=== PATIENT | female | born 1980 | race Caucasian/White ===

== ENCOUNTER 2020-06-12 18:10 | Emergency (ER) | payer OTHER, SELFPAY ==
[2020-06-12 18:22] VITALS: BP 104/55; PULSE 71; RESP 18; TEMP 37.5; O2SAT 100; BMI 24.7
[2020-06-13 00:08] LABS: MANUAL DIFF FLAG NO
[2020-06-13 00:10] LABS: Basophils Absolute Auto 0.1 X10*3/uL (0.0-0.2); Basophils Percent Auto 0.7 % (0-2); Eosinophils Absolute Auto 0.1 X10*3/uL (0.0-0.4); Eosinophils Percent Auto 1.4 % (0-4); Hematocrit 36.9 % (37-47); Hemoglobin 12.2 g/dl (12.0-16.0); Imm Gran Abs Auto 0.02 X10*3/uL (0.00-0.03); Imm Gran Pct Auto 0.2 % (0.0-0.4); Lymphocytes Absolute Auto 3.3 X10*3/uL (1.2-4.9); Lymphocytes Percent Auto 37.9 % (20-40); Mean Corpuscular HGB Conc 33.1 g/dl (31.0-35.0); Mean Corpuscular Hemoglobin 29.7 pg (27.0-33.0); Mean Corpuscular Volume 89.8 fL (80-98); Mean Platelet Volume 9.1 fL (9.4-12.3); Monocytes Absolute Auto 0.6 X10*3/uL (0.1-1.2); Monocytes Percent Auto 7.4 % (2-11); Neutrophils Absolute Auto 4.5 X10*3/uL (2.0-8.3); Neutrophils Percent Auto 52.4 % (45-73); Platelet Count 348 X10*3/uL (160-400); Red Blood Count 4.11 X10*6/uL (4.20-5.50); Red Cell Distribution Width 12.1 % (11.0-16.0); White Blood Count 8.6 X10*3/uL (4.8-10.8)
[2020-06-13 00:19] LABS: Glucose Urine UA NEG (NEG); Leukocyte Esterase Urine NEG (NEG); Nitrite Urine NEG (NEG); Specific Gravity - Urine >= 1.030 (1.005-1.025); Urine Blood NEG (NEG); Urine Ketones 40 MG/DL (NEG); Urine Protein NEG (NEG-TRACE)
[2020-06-13 00:20] LABS: Appearance Urine HAZY; Color Urine YELLOW
[2020-06-13 00:41] LABS: Alanine Aminotransferase 13 U/L (0-31); Albumin Level 4.1 g/dL (3.5-5.0); Alkaline Phosphatase 57 U/L (39-117); Anion Gap 11 (12-20); Aspartate Amino Transferase 16 U/L (5-31); Bilirubin Direct 0.3 mg/dL (0.0-0.5); Bilirubin Total 0.6 mg/dL (0.0-1.0); Blood Urea Nitrogen 12 mg/dL (9-16); Calcium 8.9 mg/dL (8.4-10.2); Carbon Dioxide 25 mmol/L (22-29); Chloride 107 mmol/L (96-108); Creatinine Clr Calc Pharmacy 103.9; Estimated Glomerular Filt Rate > 60; Glucose Random 90 mg/dL (60-115); Lipase 10 U/L (8-78); Potassium 3.7 mmol/l (3.3-5.1); Sodium 139 mmol/L (135-145); Total Protein 6.2 g/dL (6.5-8.0)
[2020-06-13 01:08] VITALS: BP 100/52; PULSE 61; RESP 16; TEMP 37.1
--- NOTE | 2020-06-13 02:25 | ED_ITS ---
HPI - GI Bleed General Chief complaint: GI Bleed Stated complaint: rectal bleeding Time Seen by Provider: 06/13/20 01:01 Source: patient Mode of arrival: ambulatory Limitations: no limitations History of Present Illness HPI Narrative: This is a 39-year-old female with out significant past medical history who presents with isolated development a few episodes of diarrhea yesterday morning that started at 4:00 a.m. with a few episodes afterwards that then she noted became mixed with blood and she states she has had a decrease in appetite without recent travel, nausea, vomiting, Abdominal pain,fevers, chills. She has not had any recent antibiotic use and does not take any prescription medications. She denies any food allergies. The event that had her most concerned was that she had had 2 small episodes of strictly small amounts blood that she states was bright red but denies any history of hemorrhoids. patient states that her last bleeding episode was at 11:00 a.m. and there has been no further bleeding or diarrhea. Related Data Allergies Allergy/AdvReac Type Severity Reaction Status Date / Time Penicillins [PENICILLINS] Allergy Intermediate HIVES Unverified 05/25/20 14:59 Sulfa (Sulfonamide Allergy Intermediate HIVES Unverified 05/25/20 14:59 Antibiotics) [SULFA (SULFONAMIDE ANTIBIOTICS)] Review of Systems Review of Systems: Pertinent positives and negatives as stated in HPI and 10 point review of systems is otherwise negative. PMFSH Past Medical History Source: nursing notes reviewed Medical History No known health problems No known health problems Social History Social History Advance Directives: No Advance Directives Information Provided: No Physical Exam Vital Signs and I&O and Narrative: Vital Signs and I&O: Vital Signs Temp 98.8 F 06/13/20 01:08 Pulse 61 06/13/20 01:08 Resp 16 06/13/20 01:08 BP 100/52 L 06/13/20 01:08 Pulse Ox 100 06/12/20 18:22 Intake & Output 06/12/20 06/12/20 06/13/20 06:59 18:59 06:59 Weight 61.235 kg Body Mass Index 24.7 VITAL SIGNS: Reviewed. GENERAL: Well developed, well nourished, in no acute distress. HEAD: Normocephalic/atraumatic, Posterior oropharynx was without edema, erythema or exudate. EYES: PERRLA, Pupils <>, EOMI intact without pain, no nystagmus/pallor/icterus noted EARS: Ext canals without abnormality, TMs non-bulging and non-erythematous NOSE: Nares patent bilateral OROPHARYNX: no oral lesions noted, posterior pharynx clear and non-erythematous without noted tonsillar enlargement/erythema/exudates NECK: Supple, no adenopathy LUNGS: Normal breath sounds. No adventitious sounds or accessory muscle use. SpO2<> CARDIOVASCULAR: Regular rate and rhythm without noted murmurs, no JVD or lower extremity edema. ABDOMEN: Soft, non-tender, non-distended with bowel sounds. No rigidity. No guarding. No palpable masses or hernias noted ARMEN: There are no inflamed hemorrhoids noted, but there is significant irritation to the 12:00 p.m. area of the anus without active bleeding , there we re no internal hemorrhoids noted and no stool in the rectal vault. MUSCULOSKELETAL: No tenderness, deformities, or effusions noted on gross inspection. EXTREMITIES: No cyanosis, clubbing or edema. SKIN: Inspection of the skin reveals no rashes, ulcerations, jaundice, pallor, or petechiae. NEUROLOGIC: Alert and oriented x 3. Strength and sensation to light touch were grossly intact x 4. Course Course Course Narrative: This is a 39-year-old female with history and clinical presentation most consistent with likely viral gastroenteritis versus contaminated food. On review of laboratory workup there is no evidence for infection, anemia , electrolyte abnormalities or MANA. all results and findings were discussed with the patient at bedside and she is stable for discharge to home and understands that her primary care provider will probably order follow- up lab work. MDM - GI Bleed Lab Data Result diagrams: 06/13/20 00:02 06/13/20 00:02 Labs: Lab Results 06/13/20 06/13/20 06/13/20 Range/Units 00:02 00:02 00:13 WBC 8.6 (4.8-10.8) X10*3/uL RBC 4.11 L (4.20-5.50) X10*6/uL Hgb 12.2 (12.0-16.0) g/dl Hct 36.9 L (37-47) % MCV 89.8 (80-98) fL MCH 29.7 (27.0-33.0) pg MCHC 33.1 (31.0-35.0) g/dl RDW 12.1 (11.0-16.0) % Plt Count 348 (160-400) X10*3/uL MPV 9.1 L (9.4-12.3) fL Immature Gran % (Auto) 0.2 (0.0-0.4) % Neut % (Auto) 52.4 (45-73) % Lymph % (Auto) 37.9 (20-40) % [place] % (Auto) 7.4 (2-11) % Eos % (Auto) 1.4 (0-4) % Baso % (Auto) 0.7 (0-2) % Neut # (Auto) 4.5 (2.0-8.3) X10*3/uL Lymph # (Auto) 3.3 (1.2-4.9) X10*3/uL [place] # (Auto) 0.6 (0.1-1.2) X10*3/uL Eos # (Auto) 0.1 (0.0-0.4) X10*3/uL Baso # (Auto) 0.1 (0.0-0.2) X10*3/uL Abs Immat Gran (auto) 0.02 (0.00-0.03) X10*3/uL Absolute Nucleated RBC 0.000 (0.0-0.012) X10*3/uL Nucleated RBC % (auto) 0.0 (0.0-0.2) /100WBC Sodium 139 (135-145) mmol/L Potassium 3.7 (3.3-5.1) mmol/l Chloride 107 (96-108) mmol/L Carbon Dioxide 25 (22-29) mmol/L Anion Gap 11 L (12-20) BUN 12 (9-16) mg/dL Creatinine 0.62 (0.5-1.4) mg/dL Estim Creat Clear Calc 103.9 Estimated GFR > 60 Random Glucose 90 (60-115) mg/dL Calcium 8.9 (8.4-10.2) mg/dL Total Bilirubin 0.6 (0.0-1.0) mg/dL Direct Bilirubin 0.3 (0.0-0.5) mg/dL AST 16 (5-31) U/L ALT 13 (0-31) U/L Alkaline Phosphatase 57 (39-117) U/L Total Protein 6.2 L (6.5-8.0) g/dL Albumin 4.1 (3.5-5.0) g/dL Lipase 10 (8-78) U/L Urine Color YELLOW Urine Appearance HAZY Urine pH 6.0 (5.0-8.0) Ur Specific [place] >= 1.030 H (1.005-1.025) Urine Protein NEG (NEG-TRACE) MG/DL Urine Glucose (UA) NEG (NEG) MG/DL Urine Ketones 40 (NEG) MG/DL Urine Blood NEG (NEG) Urine Nitrite NEG (NEG) Ur Leukocyte Esterase NEG (NEG) Urine Test NEGATIVE (NEGATIVE) Discharge Plan Discharge Clinical Impression: Anal fissure, Gastroenteritis Patient Disposition: Home, Self-Care Instructions: Anal Fissure (ED), Gastroenteritis (ED) Additional Instructions: 1. increase fluid hydration, especially water. The patient and/or family acknowledge understanding of results (as applicable), diagnosis, treatment plan, need for follow up, and symptoms that should prompt a return to the emergency room. Referrals: Amisha Coronado MD [Primary Care Provider] - 2 days ( For further follow-up regarding diarrhea with isolated episodes blood.)
[2020-06-13 02:36] LABS: UPreg QC Valid YES; Urine Pregnancy NEGATIVE (NEGATIVE)
[2020-06-13 03:09] LABS: OBS Int Ctl Valid YES; OBS1 NEG (NEG)
== END 2020-06-13 03:17 | disposition home or self-care (01) ==
PROVIDERS: Emergency Provider Student in an Organized Health Care Education/Training Program; PCP Internal Medicine
DX: K60.2 Anal fissure, unspecified (principal); K52.9 Noninfective gastroenteritis and colitis, unspecified
CPT/HCPCS: 36415; 80048; 80076; 81003; 81025; 82272; 83690; 85025; 99283; 99284

== ENCOUNTER → 2020-11-15 11:31 | Outpatient (BNVA) | payer OTHER, SELFPAY | PROVIDERS: Visit Provider Nurse Practitioner Family | DX: R00.2 Palpitations (principal); I95.9 Hypotension, unspecified | CPT/HCPCS: 93005; 99212 ==

== ENCOUNTER → 2020-11-28 09:48 | Outpatient (REF) | payer OTHER, SELFPAY ==
--- NOTE | 2020-11-28 14:00 | ECG_ITS ---
Hook-up date: 2020-11-28 10:06:00 Duration: 45:54:00 Test Indications: PALPITATIONS Medications: [id number] QRS complexes 43 Ventricular ectopics which represent <1 % of total QRS comp. 43 Supraventricular ectopics which represent <1 % of total QRS comp. * Paced QRS complexs which represent % of total QRS comp. VENTRICULAR ECTOPY 43 Isolated 0 Bigeminal Cycles 0 Couplets 0 Runs 0 Beats in Runs * Beats LONGEST at * BPM at :: -- * Beats FASTEST at * BPM at :: -- SUPRAVENTRICULAR ECTOPY 43 Isolated 0 Couplets 0 Runs 0 Beats in Runs * Beats LONGEST at * BPM at :: -- * Beats FASTEST at * BPM at :: -- HEART RATES 50 MIN at 04:02:53 2020-11-29 77 AVG 136 MAX at 09:37:06 2020-11-29 LONGEST RR 1.3040 secs at 04:04:39 2020-11-29 S-T LEVELS Channel 1 - 128 mm at 10:06:00 2020-11-28 - 128 mm at 10:06:00 2020-11-28 Channel 2 - 128 mm at 10:06:00 2020-11-28 - 128 mm at 10:06:00 2020-11-28 Channel 3 - 128 mm at 02:92:51 -- - 128 mm at 02:92:51 Underlying rhythm is sinus; Average ventricular rate 77/min; Rare, isolated supraventricular and ventricular ectopy; No sustained arrhythmias; Patient did not report any symptoms in the diary Referred By: Nano Earl Overread By: VICTOR HUGO WISE
== END ==
LOC: HO.CARD 09:48
PROVIDERS: PCP Internal Medicine; Visit Provider Nurse Practitioner Family
DX: R00.2 Palpitations (principal)
CPT/HCPCS: 93226

== ENCOUNTER → 2020-12-20 09:15 | Outpatient (BNVA) | payer OTHER, SELFPAY | PROVIDERS: PCP Internal Medicine; Visit Provider Nurse Practitioner Family ==

== ENCOUNTER 2022-05-14 16:01 | Outpatient (REF) | payer OTHER, SELFPAY ==
--- NOTE | ~2022-05-14 | MR_ITS ---
MRI OF THE BRAIN WITHOUT IV CONTRAST INDICATION: Mild cognitive impairment. COMPARISON: None available. TECHNIQUE: Multiplanar multisequence MR imaging of the brain was obtained without IV contrast. FINDINGS: There is no hydrocephalus, extra-axial surface collection, or herniation. No parenchymal signal abnormality. The major flow voids at the skull base are preserved. There is no acute infarct on diffusion-weighted imaging. There is no intracranial hemorrhage on the gradient recalled echo acquisition. The midline structures are normal. The cerebellar tonsils are normally positioned. The cerebellum and brainstem are normal. The craniocervical junction is normal. Osseous marrow signal intensity is homogenous. The visualized soft tissues are unremarkable. Small bilateral mastoid effusions. MR/MR head/brain wo con IMPRESSION: Unremarkable MRI of the brain. Small bilateral mastoid effusions.
== END 2022-05-14 16:02 | disposition home or self-care (01) ==
LOC: HO.MRI 16:01
PROVIDERS: Visit Provider Psychiatry & Neurology Neurology
DX: G31.84 Mild cognitive impairment of uncertain or unknown etiology (principal)
CPT/HCPCS: 70551

== ENCOUNTER → 2022-11-11 15:01 | Outpatient (BNVA) | payer OTHER, SELFPAY | PROVIDERS: PCP Internal Medicine; Visit Provider Internal Medicine | DX: I95.0 Idiopathic hypotension (principal) | CPT/HCPCS: 93005; 99212 ==

== ENCOUNTER → 2022-11-18 14:42 | Outpatient (BNVA) | payer OTHER, SELFPAY | PROVIDERS: PCP Internal Medicine Endocrinology, Diabetes & Metabolism; Visit Provider Nurse Practitioner Family | DX: G47.00 Insomnia, unspecified (principal) | CPT/HCPCS: 99202 ==

== ENCOUNTER 2023-08-15 10:56 | Outpatient (AMB) | payer OTHER, SELFPAY ==
--- NOTE | 2023-08-15 10:58 | MHC.OFFVIS ---
Intake Vital Signs 08/15/23 11:04 Height 5 ft 3 in Weight 152 lb BMI 26.9 BP 122/68 Blood Pressure Location Lt brachial Position Sitting Respiration 98 H Pulse Oximetry (%) 98 Oxygen Delivery Method Room Air Intake Visit Reasons: Follow up for Insomnia-LVM Intake Note: Pt presents to the office for follow up insomnia. [employer] Worker Required: No Allergies Penicillins [PENICILLINS] Allergy (Intermediate, Verified 08/15/23 11:15) HIVES Sulfa (Sulfonamide Antibiotics) [SULFA (SULFONAMIDE ANTIBIOTICS)] Allergy (Intermediate, Verified 08/15/23 11:15) HIVES HPI HPI Comments History of Present Illness Details 42 y/o female patient presents for follow up of insomnia. Pt reports that she is trying to off Lunesta, and prescribed ambien. However, pt did not start ambien yet. Pt does not want Ambien. Her psychiatrist prescribed concerta to treat ADHD, but she has not started yet, she is afraid if it cause more difficulty sleeping. Pt's psychiatrist ordered in lab sleep study, and scheduled in Oct. Pt tried music therapy, herbal tea and yoga but not helped. She also tried ramelteon, melatonin, doxepin, gabapentin, trazodone 100 mg; failed treatment, mirtazipine 7.5 mg; not tolerated. She was able to sleep 4 hours with Lunesta at the beginning, but now she can sleep only 3 hours. Denies side effects including sleep walking or sleep eating. Pt reports that cognitive decline, memory loss and affect her job. She had a sleep study done and it was negative for sleep apnea. Lack of sleep causes anxiety. Pt wants to try trazodone low dose. COUNT INCLUDES THE [facility] Medical History Low BP No known health problems No known health problems Family History Father No problems noted. Mother No problems noted. Social History Alcohol intake: never Patient Tobacco Use Status: Former Tobacco user Quit Date: 2009 Review of Systems Const All systems reviewed & are unremarkable except as noted in HPI and below Physical Exam Vital Signs: Last Vital Signs Resp 98 H 08/15/23 11:04 BP 122/68 08/15/23 11:04 Pulse Ox 98 08/15/23 11:04 Oxygen Delivery Method Room Air 08/15/23 11:04 BMI result Body Mass Index 26.9 Const General: cooperative and tired appearing Nutritional Appearance: overweight Orientation/consciousness: patient oriented x3 Neck Neck: Yes full ROM and Yes supple Resp Effort & Inspection: normal respiratory effort and able to speak in complete sentences Neuro General: patient oriented x3 and gait normal Cranial nerves: Yes CN's II-XII intact bilaterally Cognition (Neuro): normal cognition Gait exam (Neuro): Normal gait present Assessment & Plan Assessment & Plan (1) Insomnia: Code(s): G47.00 - Insomnia, unspecified Plan Advised patient to undergo in lab sleep study to assess sleep quality and PLMD. May try trazodone low dose, 25-50 mg qHS. Advised patient to try magnesium, calcium and D supplement. Continue to practice good sleep hygiene. Medications: New trazodone 1/2 tab to 1 tab qHS. 50 mg PO BEDTIME 30 days 30 tabs 1RF Coding Level of Care Code Est Pt Level 3 (13793) Diagnoses Insomnia G47.00
[2023-08-15 11:04] VITALS: BP 122/68; RESP 98; O2SAT 98; BMI 26.9
== END 2023-08-15 11:58 | disposition home or self-care (01) ==
PROVIDERS: PCP Internal Medicine Endocrinology, Diabetes & Metabolism; Visit Provider Nurse Practitioner Family
DX: G47.00 Insomnia, unspecified (principal)
CPT/HCPCS: 99213

== ENCOUNTER → 2023-08-15 10:56 | Outpatient (BNVA) | payer OTHER, SELFPAY | PROVIDERS: PCP Internal Medicine Endocrinology, Diabetes & Metabolism; Visit Provider Nurse Practitioner Family | DX: G47.00 Insomnia, unspecified (principal) | CPT/HCPCS: 99212 ==